=== PATIENT | female | born 1955 ===

== ENCOUNTER 2017-05-21 09:46 | Inpatient (IN) ==
[2017-05-21] MEDS ORDERED: ONDANSETRON 4 MG/2 ML VIAL IV PRN ×2 (10:10→13:18)
[2017-05-21] MEDS ORDERED: NITROGLYCERIN 2% OINT 1 INCH/GM PACK TOP STA (10:10)
[2017-05-21] MEDS ORDERED: ASPIRIN 325 MG TABLET PO STA (10:10)
[2017-05-21] MEDS ORDERED: MORPHINE 2 MG/1 ML SYRINGE IV PRN (10:10)
[2017-05-21 10:24] LABS: INR 0.9; Partial Thromboplastin Time 26.8 SECS (0-40)
[2017-05-21 10:25] LABS: Basophils % 0.5 % (0.0-0.8); Eosinophils % 0.5 % (0.00-10.9); Hematocrit 39.5 VOL% (35.7-47.0); Hemoglobin 14.3 GM/DL (12.0-16.0); Immature Granulocytes % 0.5 %; Immature Granulocytes Absolute 0.04 #; Lymphocytes # 1.3 10*3/uL (1.4-4.0); Lymphocytes % 14.3 % (21.3-54.2); Mean Corpuscular HGB Conc 36.2 GM/DL (32-36); Mean Corpuscular Hemoglobin 31 PG (27-34); Mean Corpuscular Volume 86.2 FL (87-102); Mean Platelet Volume 11.9 FL (9.6-12.0); Monocytes # 0.4 10*3/uL (0.11-0.8); Monocytes % 4.7 % (1.7-12.7); Neutrophils % 79.5 % (38.7-73.9); Platelet Count 198 T/CUMM (130-400); Red Blood Count 4.58 MC/CUMM (3.8-5.5); Red Cell Distribution Width 12.8 % (9.3-17.3); White Blood Count 8.7 T/CUMM (4-12)
[2017-05-21 10:29] LABS: Albumin 3.3 G/DL (3.4-5.0); Bilirubin,Total 0.6 MG/DL (0.2-1.0); Calcium 9.5 MG/DL (8.5-10.1); Osmolality,Calculated 287.8 MOS/KG (273-304); Potassium 4.1 MMOL/L (3.5-5.1); Total Protein 7.5 G/DL (6.4-8.3)
[2017-05-21] MEDS ORDERED: NITROGLYCERIN 2% OINT 1 INCH/GM PACK TOP ONE (10:35)
[2017-05-21 11:52] LABS: Apearance,Urine CLEAR (Clear); Bilirubin,Urine Negative (Negative); Blood, Urine Small mg/dL (Negative); Glucose,Urine (UA) >=500 mg/dL (Negative); Ketones,Urine 20 mg/dL (Negative); Mucus,Urine Occasional /LPF (Occasional); Nitrite,Urine Negative (Negative); Protein,Urine Negative; RBC,Urine 4 /HPF (0-4); Squamous Epithelial Cell,Urine Occasional /HPF (0-10); Urine Color Straw (Yellow); Urine Specific Gravity 1.024 (1.001-1.035); Urine Urobilinogen < 2.0 EU/DL (0.2-1.0); WBC,Urine 1 /HPF (0-6)
[2017-05-21] MEDS ORDERED: MAGNESIUM SULF RIDER 2 GM in PREMIX 1 EACH IV PRN ×3 (12:59→14:18)
[2017-05-21] MEDS ORDERED: POTASSIUM CHLORIDE RIDER 10 MEQ in PREMIX 1 EACH IV PRN (12:59)
[2017-05-21] MEDS ORDERED: DIAZEPAM 5 MG TABLET PO ONE (12:59)
[2017-05-21] MEDS ORDERED: diphenhydrAMINE CAP 25 MG CAPSULE PO ONE (12:59)
[2017-05-21] MEDS ORDERED: INSULIN REGULAR 100 UNIT/ML SUBCUT ONE (13:18)
[2017-05-21] MEDS ORDERED: MAGNESIUM SULF RIDER 4 GM in PREMIX 1 EACH IV PRN ×2 (13:18→14:18)
[2017-05-21] MEDS ORDERED: POTASSIUM CHLORIDE 20 MEQ TABLET PO PRN (13:18)
[2017-05-21] MEDS ORDERED: DIAZEPAM 5 MG TABLET ONE (13:27)
[2017-05-21] MEDS ORDERED: diphenhydrAMINE CAP 25 MG CAPSULE ONE (13:27)
[2017-05-21] MEDS ORDERED: CARVEDILOL 3.125 MG TABLET ONE (13:30)
[2017-05-21] MEDS: CARVEDILOL 3.125 MG TABLET PO SCH ×2 (13:33→21:11)
[2017-05-21] MEDS ORDERED: INSULIN REGULAR 100 UNIT/ML ONE (13:50)
[2017-05-21] MEDS ORDERED: SODIUM CHLORIDE 0.9% 1,000 ML IV SCH (14:18)
[2017-05-21] MEDS ORDERED: ENOXAPARIN 40 MG/0.4 ML SYRINGE SUBCUT SCH (14:18)
[2017-05-21] MEDS: SODIUM CHLORIDE 0.45% 1,000 ML IV SCH (14:25)
[2017-05-21] MEDS ORDERED: MIDAZOLAM 2 MG/2 ML VIAL ONE (15:22)
[2017-05-21] MEDS ORDERED: fentaNYL 100 MCG/2 ML VIAL ONE (15:22)
[2017-05-21] MEDS ORDERED: LIDOCAINE 1% 20 ML VIAL ONE (15:22)
[2017-05-21 15:37] LABS: CKMB % 6.2 %
[2017-05-21 15:41] LABS: Troponin I Only 13.2 NG/ML (0.00-0.045)
[2017-05-21] MEDS: NITROGLYCERIN 2% OINT 1 INCH/GM PACK TOP SCH ×2 (17:02→22:00)
[2017-05-21] MEDS ORDERED: DEXTROSE 50% 25 GM/50 ML VIAL IV PRN (17:04)
[2017-05-21] MEDS ORDERED: GLUCAGON 1 MG VIAL IM PRN (17:04)
[2017-05-21 18:24] LABS: CKMB % 5.9 %
[2017-05-21 18:31] LABS: Troponin I Only 14.3 NG/ML (0.00-0.045)
[2017-05-21 20:02] LABS: CKMB % 5.5 %
[2017-05-21] MEDS ORDERED: ZALEPLON 5 MG CAPSULE PO PRN (21:00)
[2017-05-21] MEDS: ATORVASTATIN 40 MG TABLET PO SCH (21:11)
[2017-05-21] MEDS: ACETAMINOPHEN 325 MG TABLET PO PRN (21:13)
[2017-05-22] MEDS: SODIUM CHLORIDE 0.45% 1,000 ML IV SCH ×3 (04:18→19:24)
[2017-05-22 04:50] LABS: Basophils % 0.5 % (0.0-0.8); Eosinophils # 0.1 10*3/uL (0.0-0.87); Eosinophils % 1.5 % (0.00-10.9); Hematocrit 35.5 VOL% (35.7-47.0); Hemoglobin 12.7 GM/DL (12.0-16.0); Immature Granulocytes % 0.3 %; Immature Granulocytes Absolute 0.03 #; Lymphocytes # 3.3 10*3/uL (1.4-4.0); Lymphocytes % 37.1 % (21.3-54.2); Mean Corpuscular HGB Conc 35.8 GM/DL (32-36); Mean Corpuscular Hemoglobin 31 PG (27-34); Mean Corpuscular Volume 87.2 FL (87-102); Mean Platelet Volume 12.4 FL (9.6-12.0); Monocytes # 0.7 10*3/uL (0.11-0.8); Monocytes % 7.7 % (1.7-12.7); Neutrophils # 4.6 10*3/uL (1.4-7.4); Neutrophils % 52.9 % (38.7-73.9); Platelet Count 176 T/CUMM (130-400); Red Blood Count 4.07 MC/CUMM (3.8-5.5); Red Cell Distribution Width 12.7 % (9.3-17.3); White Blood Count 8.8 T/CUMM (4-12)
[2017-05-22] MEDS: NITROGLYCERIN 2% OINT 1 INCH/GM PACK TOP SCH ×4 (05:19→22:36)
[2017-05-22 05:31] LABS: Calcium 8.5 MG/DL (8.5-10.1); Magnesium 1.8 MG/DL (1.8-2.4)
[2017-05-22 06:21] LABS: Risk Ratio 5.6; VLDL CHOLESTEROL 91.4 MG/DL
[2017-05-22] MEDS: ACETAMINOPHEN 325 MG TABLET PO PRN (09:47)
[2017-05-22] MEDS: PANTOPRAZOLE 40 MG TABLET PO SCH (09:48)
[2017-05-22] MEDS: CARVEDILOL 3.125 MG TABLET PO SCH ×2 (09:48→20:53)
[2017-05-22] MEDS: ENOXAPARIN 40 MG/0.4 ML SYRINGE SUBCUT SCH (09:48)
[2017-05-22] MEDS: ASPIRIN EC 81 MG TABLET PO SCH (09:48)
[2017-05-22] MEDS ORDERED: ALUMINUM/MAGNES/SIMETH MAX STR 30 ML UDCUP PO PRN (16:18)
[2017-05-22] MEDS: INSULIN REGULAR 100 UNIT/ML SUBCUT SCH ×2 (16:25→20:54)
[2017-05-22] MEDS ORDERED: MAGNESIUM HYDROXIDE SUSP 30 ML UDCUP PO ONE (20:42)
[2017-05-22] MEDS: ATORVASTATIN 40 MG TABLET PO SCH (20:53)
[2017-05-22] MEDS: DOCUSATE SODIUM 100 MG CAPSULE PO SCH (20:53)
[2017-05-23] MEDS: NITROGLYCERIN 2% OINT 1 INCH/GM PACK TOP SCH ×3 (04:41→15:45)
[2017-05-23] MEDS: SODIUM CHLORIDE 0.45% 1,000 ML IV SCH ×2 (05:10→15:36)
[2017-05-23 08:14] LABS: Basophils # 0.1 10*3/uL (0.0-0.2); Basophils % 0.7 % (0.0-0.8); Eosinophils # 0.2 10*3/uL (0.0-0.87); Eosinophils % 2.7 % (0.00-10.9); Hematocrit 37.4 VOL% (35.7-47.0); Hemoglobin 13.7 GM/DL (12.0-16.0); Immature Granulocytes % 0.3 %; Immature Granulocytes Absolute 0.02 #; Lymphocytes # 1.9 10*3/uL (1.4-4.0); Lymphocytes % 27.1 % (21.3-54.2); Mean Corpuscular HGB Conc 36.6 GM/DL (32-36); Mean Corpuscular Hemoglobin 32 PG (27-34); Mean Corpuscular Volume 87.2 FL (87-102); Mean Platelet Volume 10.8 FL (9.6-12.0); Monocytes # 0.7 10*3/uL (0.11-0.8); Monocytes % 9.3 % (1.7-12.7); Neutrophils # 4.2 10*3/uL (1.4-7.4); Neutrophils % 59.9 % (38.7-73.9); Platelet Count 193 T/CUMM (130-400); Red Blood Count 4.29 MC/CUMM (3.8-5.5); Red Cell Distribution Width 12.6 % (9.3-17.3)
[2017-05-23 08:45] LABS: Calcium 8.3 MG/DL (8.5-10.1); Magnesium 2.2 MG/DL (1.8-2.4); Osmolality,Calculated 284.5 MOS/KG (273-304); Potassium 4.2 MMOL/L (3.5-5.1)
[2017-05-23] MEDS: INSULIN REGULAR 100 UNIT/ML SUBCUT SCH ×4 (09:32→21:09)
[2017-05-23] MEDS: ENOXAPARIN 40 MG/0.4 ML SYRINGE SUBCUT SCH (09:32)
[2017-05-23] MEDS: PANTOPRAZOLE 40 MG TABLET PO SCH (09:33)
[2017-05-23] MEDS: CHLORHEXIDINE 0.12% ORAL RINSE 60 ML BOTTLE SWISH/SPIT SCH ×2 (09:34→21:10)
[2017-05-23] MEDS: CARVEDILOL 3.125 MG TABLET PO SCH ×2 (09:34→21:09)
[2017-05-23] MEDS: DOCUSATE SODIUM 100 MG CAPSULE PO SCH ×2 (09:34→21:09)
[2017-05-23] MEDS: ASPIRIN EC 81 MG TABLET PO SCH (09:34)
[2017-05-23] MEDS: SODIUM CHLORIDE 0.9% 1,000 ML IV SCH (09:35)
[2017-05-23] MEDS: CHLORHEXIDINE 4% SOLN 118 ML BOTTLE TOP SCH ×3 (09:35→21:10)
[2017-05-23] MEDS: ATORVASTATIN 40 MG TABLET PO SCH (21:09)
[2017-05-24 04:53] LABS: Basophils % 0.5 % (0.0-0.8); Eosinophils # 0.4 10*3/uL (0.0-0.87); Eosinophils % 4.1 % (0.00-10.9); Hematocrit 38.1 VOL% (35.7-47.0); Hemoglobin 13.7 GM/DL (12.0-16.0); Immature Granulocytes % 0.2 %; Immature Granulocytes Absolute 0.02 #; Lymphocytes # 3.4 10*3/uL (1.4-4.0); Lymphocytes % 40.2 % (21.3-54.2); Mean Corpuscular Hemoglobin 31 PG (27-34); Mean Corpuscular Volume 87.4 FL (87-102); Mean Platelet Volume 11.5 FL (9.6-12.0); Monocytes # 0.7 10*3/uL (0.11-0.8); Monocytes % 8.5 % (1.7-12.7); Neutrophils # 3.9 10*3/uL (1.4-7.4); Neutrophils % 46.5 % (38.7-73.9); Platelet Count 191 T/CUMM (130-400); Red Blood Count 4.36 MC/CUMM (3.8-5.5); Red Cell Distribution Width 12.6 % (9.3-17.3); White Blood Count 8.5 T/CUMM (4-12)
[2017-05-24 05:27] LABS: Calcium 8.9 MG/DL (8.5-10.1); Magnesium 2.3 MG/DL (1.8-2.4); Osmolality,Calculated 284.4 MOS/KG (273-304); Potassium 4.1 MMOL/L (3.5-5.1)
[2017-05-24] MEDS: CARVEDILOL 3.125 MG TABLET PO SCH ×2 (10:03→21:00)
[2017-05-24] MEDS: ENOXAPARIN 40 MG/0.4 ML SYRINGE SUBCUT SCH (10:03)
[2017-05-24] MEDS: ASPIRIN EC 81 MG TABLET PO SCH (10:03)
[2017-05-24] MEDS: DOCUSATE SODIUM 100 MG CAPSULE PO SCH ×2 (10:03→21:00)
[2017-05-24] MEDS: PANTOPRAZOLE 40 MG TABLET PO SCH (10:03)
[2017-05-24] MEDS: INSULIN REGULAR 100 UNIT/ML SUBCUT SCH ×4 (10:04→21:00)
[2017-05-24] MEDS: SODIUM CHLORIDE 0.9% 1,000 ML IV SCH (10:04)
[2017-05-24] MEDS: CHLORHEXIDINE 0.12% ORAL RINSE 60 ML BOTTLE SWISH/SPIT SCH ×2 (10:52→21:00)
[2017-05-24] MEDS ORDERED: NITROGLYCERIN 2% OINT 1 INCH/GM PACK TOP SCH (12:00)
[2017-05-24] MEDS: CHLORHEXIDINE 4% SOLN 118 ML BOTTLE TOP SCH ×2 (15:00→21:00)
[2017-05-24] MEDS: INSULIN GLARGINE 100 UNIT/ML SUBCUT SCH (16:42)
[2017-05-24] MEDS: ATORVASTATIN 40 MG TABLET PO SCH (21:00)
[2017-05-25 01:35] LABS: Basophils # 0.1 10*3/uL (0.0-0.2); Basophils % 0.6 % (0.0-0.8); Eosinophils # 0.2 10*3/uL (0.0-0.87); Eosinophils % 2.7 % (0.00-10.9); Hematocrit 39.6 VOL% (35.7-47.0); Hemoglobin 14.1 GM/DL (12.0-16.0); Immature Granulocytes % 0.3 %; Immature Granulocytes Absolute 0.03 #; Lymphocytes # 2.8 10*3/uL (1.4-4.0); Lymphocytes % 30.6 % (21.3-54.2); Mean Corpuscular HGB Conc 35.6 GM/DL (32-36); Mean Corpuscular Hemoglobin 31 PG (27-34); Mean Corpuscular Volume 86.8 FL (87-102); Mean Platelet Volume 11.9 FL (9.6-12.0); Monocytes # 0.7 10*3/uL (0.11-0.8); Monocytes % 7.6 % (1.7-12.7); Neutrophils # 5.2 10*3/uL (1.4-7.4); Neutrophils % 58.2 % (38.7-73.9); Platelet Count 213 T/CUMM (130-400); Red Blood Count 4.56 MC/CUMM (3.8-5.5); Red Cell Distribution Width 12.5 % (9.3-17.3)
[2017-05-25] MEDS ORDERED: TISSUE ADHESIVE 1 EACH APPLICATOR TOP ONE (04:41)
[2017-05-25] MEDS ORDERED: PAPAVERINE 60 MG/2 ML VIAL ONE (04:41)
[2017-05-25] MEDS ORDERED: VANCOMYCIN 1,000 MG VIAL ONE (04:41)
[2017-05-25] MEDS ORDERED: FAMOTIDINE 20 MG TABLET ONE (04:58)
[2017-05-25] MEDS ORDERED: DIAZEPAM 5 MG TABLET ONE (04:58)
[2017-05-25] MEDS ORDERED: DIAZEPAM 5 MG TABLET PO ONE (06:00)
[2017-05-25] MEDS ORDERED: FAMOTIDINE 20 MG TABLET PO ONE (06:00)
[2017-05-25] MEDS ORDERED: CEFUROXIME INJ 1,500 MG in SYRINGE 1 EACH IV ONE (06:00)
[2017-05-25] MEDS ORDERED: TRANEXAMIC ACID 1,000 MG/10 ML VIAL IV ONE ×2 (06:10→06:24)
[2017-05-25] MEDS ORDERED: INSULIN REGULAR 100 UNIT/ML ONE ×2 (07:46→10:38)
[2017-05-25] MEDS ORDERED: PHENYLEPHRINE DRIP 20 MG/250 ML PREMIX IV ONE ×3 (08:46→11:35)
[2017-05-25] MEDS ORDERED: NITROGLYCERIN DRIP 50 MG/250 ML BOTTLE IV ONE ×2 (08:46→11:35)
[2017-05-25] MEDS ORDERED: HEPARIN/NACL 0.9% 2 UNITS/ML 500 ML IV ONE ×2 (08:46→11:35)
[2017-05-25] MEDS ORDERED: ALBUMIN 5% 12.5 GM/250 ML VIAL IV ONE (08:56)
[2017-05-25] MEDS ORDERED: SODIUM BICARBONATE 50 MEQ/50 ML SYRINGE IV ONE ×2 (08:57→10:20)
[2017-05-25] MEDS ORDERED: CALCIUM CHLORIDE 1,000 MG/10 ML SYRINGE IV ONE ×2 (08:57→09:00)
[2017-05-25] MEDS ORDERED: LIDOCAINE 2% 5 ML VIAL ONE (09:00)
[2017-05-25] MEDS ORDERED: ETOMIDATE 20 MG/10 ML VIAL IV ONE ×2 (09:00→12:13)
[2017-05-25] MEDS ORDERED: VECURONIUM 10 MG VIAL IV ONE ×2 (09:00→12:12)
[2017-05-25] MEDS ORDERED: SEVOFLURANE 1 UNIT/15 MINUTE INH ONE ×2 (09:00→12:12)
[2017-05-25 09:53] LABS: Calcium 9.3 MG/DL (8.5-10.1); Magnesium 2.2 MG/DL (1.8-2.4); Osmolality,Calculated 285.7 MOS/KG (273-304); Potassium 4.2 MMOL/L (3.5-5.1)
[2017-05-25 10:17] LABS: ABG Base Excess 0.2 MMOL/L (-2.5-2.5); ABG HCO3 24.6 MMOL/L (20-26); ABG Oxygen Saturation 96.9 % (95-100); ABG PCO2 37.2 MM HG (35-48); ABG PH 7.423 (7.35-7.45); ABG PO2 87.5 MM HG (80-95); ABG TCO2 20.8 MMOL/L (23-27)
[2017-05-25 10:17] LABS: INR 0.9; PT Patient Result 9.8 SECS; Partial Thromboplastin Time 25.9 SECS (0-40)
[2017-05-25] MEDS ORDERED: MANNITOL 12.5 GM/50 ML VIAL IV ONE (10:20)
[2017-05-25] MEDS ORDERED: FUROSEMIDE 20 MG/2 ML VIAL ONE (10:20)
[2017-05-25] MEDS ORDERED: methylPREDNISolone SOD SUC 1,000 MG/8 ML VIAL ONE (10:20)
[2017-05-25] MEDS ORDERED: HEPARIN 10,000 UNIT/10 ML VIAL ONE (10:20)
[2017-05-25] MEDS ORDERED: MAGNESIUM SULFATE 1 GM/2 ML VIAL ONE (10:20)
[2017-05-25] MEDS ORDERED: ALBUMIN 25% 25 GM/100 ML VIAL IV ONE (10:20)
[2017-05-25] MEDS ORDERED: DEXTROSE 5% KCL 20 MEQ 20 MEQ/1,000 ML BAG IV ONE (10:20)
[2017-05-25] MEDS ORDERED: PROTAMINE SULFATE 250 MG/25 ML VIAL IV ONE (10:20)
[2017-05-25] MEDS ORDERED: THROMBIN TOPICAL (RECOMBINANT) 5,000 UNIT VIAL TOP ONE (10:30)
[2017-05-25 10:33] LABS: ABG Base Excess -1.8 MMOL/L (-2.5-2.5); ABG HCO3 20.3 MMOL/L (20-26); ABG Oxygen Saturation 98.7 % (95-100); ABG PCO2 25.9 MM HG (35-48); ABG PH 7.511 (7.35-7.45); ABG PO2 423.2 MM HG (80-95); Glucose Heart Surgery 349 MG/DL (74-106); Hemoglobin Heart Surgery 10.2 G/DL (12.0-16.0); Ionized Calcium Arterial 1.17 MMOL/L (1.21-1.46); PCO2 Patient Temp Arterial 25.9 MMHG; PH Patient Temp Arterial 7.511; PO2 Patient Temp Arterial 423.2 MM HG; Patient Temperature 37 CELCIUS; Potassium Heart/CVR 3.9 MMOL/L (3.5-5.1); Sodium Heart/CVR 130 MMOL/L (135-145)
[2017-05-25] MEDS ORDERED: PHENYLEPHRINE DRIP 40 MG/250 ML PREMIX IV ONE (10:56)
[2017-05-25] MEDS ORDERED: SODIUM CHLORIDE 0.9% 250 ML IV PRN (11:35)
[2017-05-25] MEDS ORDERED: MAGNESIUM SULF RIDER 4 GM in PREMIX 1 EACH IV PRN (11:35)
[2017-05-25] MEDS ORDERED: MORPHINE 10 MG/1 ML VIAL IV PRN (11:35)
[2017-05-25] MEDS ORDERED: CHLORHEXIDINE 4% SOLN 118 ML BOTTLE TOP PRN (11:35)
[2017-05-25] MEDS ORDERED: DEXTROSE 50% 25 GM/50 ML VIAL IV PRN ×2 (11:35)
[2017-05-25] MEDS ORDERED: ACETAMINOPHEN 650 MG SUPP RECTAL PRN (11:35)
[2017-05-25] MEDS ORDERED: MAGNESIUM SULF RIDER 2 GM in PREMIX 1 EACH IV PRN (11:35)
[2017-05-25] MEDS ORDERED: ONDANSETRON 4 MG/2 ML VIAL IV PRN (11:35)
[2017-05-25] MEDS ORDERED: MORPHINE 2 MG/1 ML SYRINGE IV PRN (11:35)
[2017-05-25] MEDS ORDERED: CALCIUM CHLORIDE 1,000 MG/10 ML SYRINGE IV PRN (11:35)
[2017-05-25 11:36] LABS: VBG Base Excess -3.5 MEQ/L (0-4); VBG HCO3 21.5 MEQ/L (24-28); VBG Oxygen Saturation 98.7 %; VBG PCO2 35.2 MMHG (41-51); VBG PH 7.383
[2017-05-25 11:43] LABS: ABG Base Excess -1.8 MMOL/L (-2.5-2.5); ABG HCO3 22.9 MMOL/L (20-26); ABG Oxygen Saturation 99.8 % (95-100); ABG PCO2 31.7 MM HG (35-48); ABG PH 7.437 (7.35-7.45); ABG TCO2 18.4 MMOL/L (23-27); Glucose Heart Surgery 321 MG/DL (74-106); Hematocrit Heart Surgery 42.4 PERCENT (37-47); Hemoglobin Heart Surgery 13.8 G/DL (12.0-16.0); Ionized Calcium Arterial 1.19 MMOL/L (1.21-1.46); PCO2 Patient Temp Arterial 31.7 MMHG; PH Patient Temp Arterial 7.437; Patient Temperature 37 CELCIUS; Potassium Heart/CVR 4.1 MMOL/L (3.5-5.1); Sodium Heart/CVR 137 MMOL/L (135-145)
[2017-05-25] MEDS ORDERED: MIDAZOLAM 10 MG/2 ML VIAL ONE ×2 (11:44→12:12)
[2017-05-25 11:46] LABS: VBG Base Excess -2.6 MEQ/L (0-4); VBG Oxygen Saturation 75.1 %; VBG PCO2 37.4 MMHG (41-51); VBG PH 7.381; VBG PO2 42.7 MMHG (17-40)
[2017-05-25] MEDS: SODIUM CHLORIDE 0.45% 1,000 ML IV SCH ×2 (11:50)
[2017-05-25 11:53] LABS: Hemoglobin Heart Surgery 8.4 G/DL (12.0-16.0); PCO2 Patient Temp Venous 32.4 MM HG; PH Patient Temp Venous 7.424; PO2 Patient Temp Venous 34.6 MM HG; Potassium Heart/CVR 4.5 MMOL/L (3.5-5.1)
[2017-05-25 11:54] LABS: Hematocrit Heart Surgery 28.1 PERCENT (37-47); PCO2 Patient Temp Venous 28.9 MM HG; PH Patient Temp Venous 7.452; PO2 Patient Temp Venous 30.3 MM HG; Potassium Heart/CVR 3.9 MMOL/L (3.5-5.1); VBG Base Excess -2.9 MEQ/L (0-4); VBG HCO3 21.7 MEQ/L (24-28); VBG Oxygen Saturation 77.3 %; VBG PCO2 36.8 MMHG (41-51); VBG PH 7.38; VBG PO2 42.9 MMHG (17-40)
[2017-05-25] MEDS: MIDAZOLAM 2 MG/2 ML VIAL IV PRN ×3 (11:55→13:38)
[2017-05-25 11:58] LABS: Basophils % 0.1 % (0.0-0.8); Eosinophils % 0.4 % (0.00-10.9); Hematocrit 30.5 VOL% (35.7-47.0); Hemoglobin 10.9 GM/DL (12.0-16.0); Immature Granulocytes % 1.3 %; Immature Granulocytes Absolute 0.12 #; Lymphocytes # 1.1 10*3/uL (1.4-4.0); Lymphocytes % 11.2 % (21.3-54.2); Mean Corpuscular HGB Conc 35.7 GM/DL (32-36); Mean Corpuscular Hemoglobin 31 PG (27-34); Mean Corpuscular Volume 87.9 FL (87-102); Mean Platelet Volume 11.5 FL (9.6-12.0); Monocytes # 0.3 10*3/uL (0.11-0.8); Monocytes % 3.1 % (1.7-12.7); Neutrophils # 7.9 10*3/uL (1.4-7.4); Neutrophils % 83.9 % (38.7-73.9); Platelet Count 136 T/CUMM (130-400); Red Blood Count 3.47 MC/CUMM (3.8-5.5); Red Cell Distribution Width 12.6 % (9.3-17.3); White Blood Count 9.4 T/CUMM (4-12)
[2017-05-25 12:05] LABS: Hematocrit Heart Surgery 28.4 PERCENT (37-47); Hemoglobin Heart Surgery 9.2 G/DL (12.0-16.0); PCO2 Patient Temp Venous 35.8 MM HG; PH Patient Temp Venous 7.409; PO2 Patient Temp Venous 36.4 MM HG; Potassium Heart/CVR 4.5 MMOL/L (3.5-5.1); VBG Base Excess -1.6 MEQ/L (0-4); VBG HCO3 22.6 MEQ/L (24-28); VBG Oxygen Saturation 68.6 %; VBG PCO2 35.8 MMHG (41-51); VBG PH 7.409; VBG PO2 36.4 MMHG (17-40)
[2017-05-25 12:05] LABS: INR 1.2; PT Patient Result 12.1 SECS; Partial Thromboplastin Time 28.6 SECS (0-40)
[2017-05-25] MEDS ORDERED: CALCIUM CHLORIDE 1,000 MG/10 ML VIAL IV ONE (12:12)
[2017-05-25] MEDS ORDERED: SODIUM CHLORIDE 0.9% 100 ML IV ONE (12:13)
[2017-05-25] MEDS ORDERED: SODIUM CHLORIDE 0.9% 1,000 ML IV ONE (12:13)
[2017-05-25] MEDS ORDERED: SODIUM CHLORIDE 0.9% 250 ML IV ONE (12:13)
[2017-05-25] MEDS ORDERED: LACTATED RINGERS 1,000 ML IV ONE (12:13)
[2017-05-25 12:15] LABS: ABG Base Excess -2.7 MMOL/L (-2.5-2.5); ABG HCO3 21.5 MMOL/L (20-26); ABG Oxygen Saturation 96.5 % (95-100); ABG PCO2 35.5 MM HG (35-48); ABG PO2 99.9 MM HG (80-95); ABG TCO2 22.6 MMOL/L (23-27); Glucose Heart Surgery 264 MG/DL (74-106); Hemoglobin Heart Surgery 12.4 G/DL (12.0-16.0); Potassium Heart/CVR 3.4 MMOL/L (3.5-5.1)
[2017-05-25] MEDS: INSULIN REGULAR DRIP 100 ML IV SCH (12:21)
[2017-05-25 12:30] LABS: Calcium 7.7 MG/DL (8.5-10.1); Magnesium 2.4 MG/DL (1.8-2.4); Osmolality,Calculated 284.7 MOS/KG (273-304); Potassium 3.5 MMOL/L (3.5-5.1)
[2017-05-25 12:32] LABS: Lactic Acid 3.7 MMOL/L (0.4-2.0)
[2017-05-25] MEDS: POTASSIUM CHLORIDE RIDER 20 MEQ in PREMIX 1 EACH IV PRN ×2 (12:36→13:11)
[2017-05-25] MEDS: INSULIN REGULAR 100 UNIT/ML IV PRN ×2 (13:11→20:23)
[2017-05-25] MEDS: ALBUMIN 5% 12.5 GM in PREMIX 1 EACH IV PRN ×2 (15:29→15:47)
[2017-05-25] MEDS ORDERED: NITROGLYCERIN DRIP 50 MG/250 ML BOTTLE IV SCH (17:00)
[2017-05-25] MEDS: CEFUROXIME INJ 1,500 MG in SYRINGE 1 EACH IV SCH (18:17)
[2017-05-25 19:12] LABS: ABG Base Excess -0.3 MMOL/L (-2.5-2.5); ABG HCO3 24.1 MMOL/L (20-26); ABG Oxygen Saturation 96.8 % (95-100); ABG PCO2 38.3 MM HG (35-48); ABG PH 7.416 (7.35-7.45); ABG PO2 98.2 MM HG (80-95); ABG TCO2 25.2 MMOL/L (23-27); Glucose Heart Surgery 149 MG/DL (74-106); Hemoglobin Heart Surgery 11.3 G/DL (12.0-16.0)
[2017-05-25] MEDS: CHLORHEXIDINE 0.12% ORAL RINSE 60 ML BOTTLE SWISH/SPIT SCH (20:25)
[2017-05-26] MEDS: SODIUM CHLORIDE 0.45% 1,000 ML IV SCH ×2 (00:35→10:14)
[2017-05-26] MEDS: INSULIN REGULAR DRIP 100 ML IV SCH (00:36)
[2017-05-26 03:34] LABS: Basophils % 0.1 % (0.0-0.8); Hematocrit 27.9 VOL% (35.7-47.0); Hemoglobin 9.9 GM/DL (12.0-16.0); Immature Granulocytes % 0.4 %; Immature Granulocytes Absolute 0.07 #; Lymphocytes # 1.5 10*3/uL (1.4-4.0); Lymphocytes % 9.1 % (21.3-54.2); Mean Corpuscular HGB Conc 35.5 GM/DL (32-36); Mean Corpuscular Hemoglobin 31 PG (27-34); Mean Corpuscular Volume 88.6 FL (87-102); Mean Platelet Volume 10.7 FL (9.6-12.0); Monocytes % 6.4 % (1.7-12.7); Neutrophils # 13.6 10*3/uL (1.4-7.4); Platelet Count 142 T/CUMM (130-400); Red Blood Count 3.15 MC/CUMM (3.8-5.5); White Blood Count 16.2 T/CUMM (4-12)
[2017-05-26 04:20] LABS: Calcium 7.8 MG/DL (8.5-10.1); Magnesium 1.9 MG/DL (1.8-2.4); Osmolality,Calculated 277.5 MOS/KG (273-304); Potassium 3.9 MMOL/L (3.5-5.1)
[2017-05-26] MEDS: POTASSIUM CHLORIDE RIDER 20 MEQ in PREMIX 1 EACH IV PRN (04:31)
[2017-05-26] MEDS: POTASSIUM CHLORIDE RIDER 10 MEQ in PREMIX 1 EACH IV PRN (05:12)
[2017-05-26] MEDS: CEFUROXIME INJ 1,500 MG in SYRINGE 1 EACH IV SCH (06:21)
[2017-05-26] MEDS ORDERED: FUROSEMIDE 40 MG/4 ML VIAL IV ONE (06:59)
[2017-05-26] MEDS: INSULIN REGULAR 100 UNIT/ML SUBCUT SCH ×5 (08:05→22:53)
[2017-05-26] MEDS: CLOPIDOGREL 75 MG TABLET PO SCH (08:32)
[2017-05-26] MEDS: FUROSEMIDE 40 MG TABLET PO SCH (08:32)
[2017-05-26] MEDS: METOPROLOL TARTRATE 25 MG TABLET PO SCH ×2 (08:33→22:53)
[2017-05-26] MEDS: CHLORHEXIDINE 0.12% ORAL RINSE 60 ML BOTTLE SWISH/SPIT SCH ×3 (08:34→22:54)
[2017-05-26] MEDS: SODIUM CHLORIDE 0.9% 1,000 ML IV SCH (10:12)
[2017-05-26] MEDS: ASPIRIN EC 81 MG TABLET PO SCH (10:12)
[2017-05-26] MEDS: DOCUSATE SODIUM 100 MG CAPSULE PO SCH (10:13)
[2017-05-26] MEDS: CARVEDILOL 3.125 MG TABLET PO SCH (10:13)
[2017-05-26] MEDS: CHLORHEXIDINE 4% SOLN 118 ML BOTTLE TOP SCH (10:13)
[2017-05-26] MEDS: INSULIN GLARGINE 100 UNIT/ML SUBCUT SCH (10:13)
[2017-05-26] MEDS: PANTOPRAZOLE 40 MG TABLET PO SCH (10:13)
[2017-05-26] MEDS: ASPIRIN EC 325 MG TABLET PO SCH (12:54)
[2017-05-26] MEDS: ATORVASTATIN 40 MG TABLET PO SCH ×2 (12:54→22:53)
[2017-05-26] MEDS ORDERED: CEFUROXIME INJ 1,500 MG in SYRINGE 1 EACH IV SCH (23:30)
[2017-05-27] MEDS: CEFUROXIME INJ 1,500 MG in SYRINGE 1 EACH IV SCH (00:40)
[2017-05-27 05:57] LABS: Basophils % 0.3 % (0.0-0.8); Eosinophils % 0.1 % (0.00-10.9); Hemoglobin 11.6 GM/DL (12.0-16.0); Immature Granulocytes % 0.6 %; Immature Granulocytes Absolute 0.09 #; Lymphocytes # 3.1 10*3/uL (1.4-4.0); Lymphocytes % 19.4 % (21.3-54.2); Mean Corpuscular HGB Conc 35.2 GM/DL (32-36); Mean Corpuscular Hemoglobin 31 PG (27-34); Mean Corpuscular Volume 89.2 FL (87-102); Mean Platelet Volume 11.7 FL (9.6-12.0); Monocytes # 1.6 10*3/uL (0.11-0.8); Monocytes % 10.2 % (1.7-12.7); Neutrophils % 69.4 % (38.7-73.9); Platelet Count 135 T/CUMM (130-400); Red Cell Distribution Width 12.9 % (9.3-17.3); White Blood Count 15.8 T/CUMM (4-12)
[2017-05-27] MEDS: INSULIN REGULAR 100 UNIT/ML SUBCUT SCH ×6 (06:19→22:03)
[2017-05-27 06:31] LABS: Calcium 8.6 MG/DL (8.5-10.1); Magnesium 2.1 MG/DL (1.8-2.4); Osmolality,Calculated 283.7 MOS/KG (273-304)
[2017-05-27] MEDS: ALBUTEROL/IPRATROPIUM 3 ML NEB RESP TX SCH ×4 (07:58→20:06)
[2017-05-27] MEDS ORDERED: METOPROLOL TARTRATE 50 MG TABLET PO SCH (09:00)
[2017-05-27] MEDS: CLOPIDOGREL 75 MG TABLET PO SCH (09:56)
[2017-05-27] MEDS: CHLORHEXIDINE 0.12% ORAL RINSE 60 ML BOTTLE SWISH/SPIT SCH ×2 (09:56→22:05)
[2017-05-27] MEDS: ASPIRIN EC 325 MG TABLET PO SCH (09:56)
[2017-05-27] MEDS: FUROSEMIDE 40 MG TABLET PO SCH (09:56)
[2017-05-27] MEDS ORDERED: METOPROLOL TARTRATE 5 MG/5 ML VIAL IV ONE (20:44)
[2017-05-27] MEDS: ATORVASTATIN 40 MG TABLET PO SCH (22:04)
[2017-05-27] MEDS: METOPROLOL TARTRATE 100 MG TABLET PO SCH (22:04)
[2017-05-28] MEDS: ALBUTEROL/IPRATROPIUM 3 ML NEB RESP TX SCH ×7 (00:18→23:44)
[2017-05-28] MEDS: INSULIN REGULAR 100 UNIT/ML SUBCUT SCH ×6 (01:16→21:37)
[2017-05-28 04:39] LABS: Basophils # 0.1 10*3/uL (0.0-0.2); Basophils % 0.3 % (0.0-0.8); Eosinophils # 0.1 10*3/uL (0.0-0.87); Eosinophils % 0.7 % (0.00-10.9); Hematocrit 32.8 VOL% (35.7-47.0); Hemoglobin 11.6 GM/DL (12.0-16.0); Immature Granulocytes % 0.7 %; Lymphocytes % 20.3 % (21.3-54.2); Mean Corpuscular HGB Conc 35.4 GM/DL (32-36); Mean Corpuscular Hemoglobin 31 PG (27-34); Mean Corpuscular Volume 88.4 FL (87-102); Mean Platelet Volume 11.4 FL (9.6-12.0); Monocytes # 1.4 10*3/uL (0.11-0.8); Monocytes % 9.3 % (1.7-12.7); NRBC # 0.02 10*3/uL; Neutrophils # 10.2 10*3/uL (1.4-7.4); Neutrophils % 68.7 % (38.7-73.9); Platelet Count 161 T/CUMM (130-400); Red Blood Count 3.71 MC/CUMM (3.8-5.5); Red Cell Distribution Width 12.9 % (9.3-17.3); White Blood Count 14.8 T/CUMM (4-12)
[2017-05-28 05:17] LABS: Calcium 8.6 MG/DL (8.5-10.1); Magnesium 2.3 MG/DL (1.8-2.4); Osmolality,Calculated 286.5 MOS/KG (273-304); Potassium 3.7 MMOL/L (3.5-5.1)
[2017-05-28] MEDS ORDERED: INSULIN REGULAR 100 UNIT/ML SUBCUT SCH (07:30)
[2017-05-28] MEDS: FUROSEMIDE 40 MG TABLET PO SCH (08:58)
[2017-05-28] MEDS: CLOPIDOGREL 75 MG TABLET PO SCH (08:58)
[2017-05-28] MEDS: ASPIRIN EC 325 MG TABLET PO SCH (08:58)
[2017-05-28] MEDS: METOPROLOL TARTRATE 100 MG TABLET PO SCH ×2 (08:59→21:36)
[2017-05-28] MEDS: CHLORHEXIDINE 0.12% ORAL RINSE 60 ML BOTTLE SWISH/SPIT SCH ×2 (08:59→21:37)
[2017-05-28] MEDS ORDERED: SODIUM PHOSPHATE ENEMA 133 ML BOTTLE RECTAL ONE (10:06)
[2017-05-28] MEDS ORDERED: MAGNESIUM HYDROXIDE SUSP 30 ML UDCUP PO PRN (10:06)
[2017-05-28] MEDS ORDERED: FUROSEMIDE 40 MG/4 ML VIAL IV ONE (10:06)
[2017-05-28] MEDS: ATORVASTATIN 40 MG TABLET PO SCH (21:36)
[2017-05-29] MEDS: ALBUTEROL/IPRATROPIUM 3 ML NEB RESP TX SCH ×3 (03:01→11:29)
[2017-05-29 03:45] LABS: Basophils # 0.1 10*3/uL (0.0-0.2); Basophils % 0.5 % (0.0-0.8); Eosinophils # 0.4 10*3/uL (0.0-0.87); Hemoglobin 11.9 GM/DL (12.0-16.0); Immature Granulocytes % 0.8 %; Lymphocytes # 3.5 10*3/uL (1.4-4.0); Lymphocytes % 26.5 % (21.3-54.2); Mean Corpuscular HGB Conc 36.1 GM/DL (32-36); Mean Corpuscular Hemoglobin 32 PG (27-34); Mean Corpuscular Volume 87.8 FL (87-102); Mean Platelet Volume 11.2 FL (9.6-12.0); Monocytes # 1.3 10*3/uL (0.11-0.8); Monocytes % 9.9 % (1.7-12.7); NRBC # 0.02 10*3/uL; Neutrophils # 7.8 10*3/uL (1.4-7.4); Neutrophils % 59.3 % (38.7-73.9); Platelet Count 210 T/CUMM (130-400); Red Blood Count 3.76 MC/CUMM (3.8-5.5); White Blood Count 13.1 T/CUMM (4-12)
[2017-05-29 04:11] LABS: Calcium 8.6 MG/DL (8.5-10.1); Magnesium 2.1 MG/DL (1.8-2.4); Osmolality,Calculated 284.5 MOS/KG (273-304); Potassium 3.3 MMOL/L (3.5-5.1)
[2017-05-29] MEDS: POTASSIUM CHLORIDE RIDER 10 MEQ in PREMIX 1 EACH IV PRN (04:31)
[2017-05-29] MEDS ORDERED: POTASSIUM CHLORIDE 20 MEQ TABLET PO ONE (06:30)
[2017-05-29] MEDS: ASPIRIN EC 325 MG TABLET PO SCH (08:33)
[2017-05-29] MEDS: CLOPIDOGREL 75 MG TABLET PO SCH (08:33)
[2017-05-29] MEDS: METOPROLOL TARTRATE 100 MG TABLET PO SCH (08:33)
[2017-05-29] MEDS: FUROSEMIDE 40 MG TABLET PO SCH (08:33)
[2017-05-29] MEDS: INSULIN REGULAR 100 UNIT/ML SUBCUT SCH ×2 (08:33→11:41)
[2017-05-29] MEDS: CHLORHEXIDINE 0.12% ORAL RINSE 60 ML BOTTLE SWISH/SPIT SCH (08:34)
[2017-05-29 11:37] VITALS: BP 117/58
== END 2017-05-29 13:04 | disposition home health service (06) | DRG 234 ==
LOC: EDUNIT# → EDBD → N.ED 09:46 → N.EDINP 11:34 → OBSVTOIN 11:34 → INTOOBSV 11:34 → N.EDINP 15:05 → N.TELEN 16:50 → N.CVR 05-25 10:53 → N.ICU 05-26 09:00 → N.TELES 05-26 18:19
PROVIDERS: ADMIT Internal Medicine Cardiovascular Disease; ATTEND Internal Medicine Cardiovascular Disease

== ENCOUNTER 2018-10-14 11:35 | Observation (INO) ==
[2018-10-14 12:07] LABS: Basophils # 0.1 10*3/uL (0.0-0.2); Basophils % 0.7 % (0.0-0.8); Eosinophils # 0.1 10*3/uL (0.0-0.87); Eosinophils % 1.4 % (0.00-10.9); Hematocrit 36.3 VOL% (35.7-47.0); Hemoglobin 12.2 GM/DL (12.0-16.0); Immature Granulocytes % 0.4 %; Immature Granulocytes Absolute 0.03 #; Lymphocytes # 2.3 10*3/uL (1.4-4.0); Lymphocytes % 31.1 % (21.3-54.2); Mean Corpuscular HGB Conc 33.6 GM/DL (32-36); Mean Corpuscular Hemoglobin 31 PG (27-34); Mean Corpuscular Volume 91.4 FL (87-102); Mean Platelet Volume 10.8 FL (9.6-12.0); Monocytes # 0.5 10*3/uL (0.11-0.8); Monocytes % 7.2 % (1.7-12.7); Neutrophils # 4.3 10*3/uL (1.4-7.4); Neutrophils % 59.2 % (38.7-73.9); Platelet Count 193 T/CUMM (130-400); Red Blood Count 3.97 MC/CUMM (3.8-5.5); Red Cell Distribution Width 12.6 % (9.3-17.3); White Blood Count 7.3 T/CUMM (4-12)
[2018-10-14] MEDS ORDERED: NITROGLYCERIN 2% OINT 1 INCH/GM PACK TOP STA (12:09)
[2018-10-14] MEDS ORDERED: ENOXAPARIN 80 MG/0.8 ML SYRINGE SUBCUT STA (12:09)
[2018-10-14 12:14] LABS: INR 0.9; PT Patient Result 10.1 SECS; Partial Thromboplastin Time 25.2 SECS (0-40)
[2018-10-14 12:46] LABS: Albumin 3.1 G/DL (3.4-5.0); Bilirubin,Total 0.7 MG/DL (0.2-1.0); Calcium 8.2 MG/DL (8.5-10.1); Potassium 4.2 MMOL/L (3.5-5.1); Total Protein 6.9 G/DL (6.4-8.3)
[2018-10-14] MEDS ORDERED: INFLUENZA VIRUS VACCINE 0.5 ML SYRINGE IM ONE (15:32)
[2018-10-14] MEDS ORDERED: ALUM/MAG/SIMETH/LIDO VISC 1:1 30 ML BOTTLE PO PRN (15:53)
[2018-10-14] MEDS ORDERED: DEXTROSE 50% 25 GM/50 ML SYRINGE IV PRN (15:53)
[2018-10-14] MEDS ORDERED: GLUCAGON 1 MG VIAL IM PRN (15:53)
[2018-10-14] MEDS ORDERED: ONDANSETRON 4 MG/2 ML VIAL IV PRN (15:53)
[2018-10-14] MEDS ORDERED: MORPHINE 4 MG/1 ML VIAL IV PRN (15:53)
[2018-10-14] MEDS: INSULIN LISPRO 100 UNIT/ML SUBCUT SCH ×2 (17:01→20:58)
[2018-10-14] MEDS: ACETAMINOPHEN 325 MG TABLET PO PRN (17:04)
[2018-10-14] MEDS: PANTOPRAZOLE 40 MG TABLET PO SCH (17:06)
[2018-10-14] MEDS: glyBURIDE/METFORMIN 5-500 MG TABLET PO SCH (20:59)
[2018-10-14] MEDS ORDERED: INSULIN GLARGINE 100 UNIT/ML SUBCUT SCH (21:00)
[2018-10-15] MEDS: ACETAMINOPHEN 325 MG TABLET PO PRN (01:05)
[2018-10-15 05:15] LABS: Basophils % 0.6 % (0.0-0.8); Eosinophils # 0.2 10*3/uL (0.0-0.87); Eosinophils % 2.5 % (0.00-10.9); Hemoglobin 12.5 GM/DL (12.0-16.0); Immature Granulocytes % 0.3 %; Immature Granulocytes Absolute 0.02 #; Lymphocytes # 3.2 10*3/uL (1.4-4.0); Lymphocytes % 44.4 % (21.3-54.2); Mean Corpuscular HGB Conc 33.8 GM/DL (32-36); Mean Corpuscular Hemoglobin 31 PG (27-34); Mean Corpuscular Volume 90.7 FL (87-102); Mean Platelet Volume 11.4 FL (9.6-12.0); Monocytes # 0.6 10*3/uL (0.11-0.8); Monocytes % 8.6 % (1.7-12.7); Neutrophils # 3.1 10*3/uL (1.4-7.4); Neutrophils % 43.6 % (38.7-73.9); Platelet Count 190 T/CUMM (130-400); Red Blood Count 4.08 MC/CUMM (3.8-5.5); Red Cell Distribution Width 12.6 % (9.3-17.3); White Blood Count 7.2 T/CUMM (4-12)
[2018-10-15 05:36] LABS: Calcium 8.3 MG/DL (8.5-10.1); Osmolality,Calculated 290.8 MOS/KG (273-304); Potassium 3.5 MMOL/L (3.5-5.1); Thyroid Stimulating Hormone 2.51 uIU/ml (0.358-3.74)
[2018-10-15] MEDS ORDERED: REGADENOSON 0.4 MG/5 ML SYRINGE IV ONE (07:35)
[2018-10-15] MEDS ORDERED: ASPIRIN EC 81 MG TABLET PO SCH (09:00)
[2018-10-15] MEDS: PANTOPRAZOLE 40 MG TABLET PO SCH (10:33)
[2018-10-15] MEDS: glyBURIDE/METFORMIN 5-500 MG TABLET PO SCH (10:33)
[2018-10-15] MEDS: INSULIN LISPRO 100 UNIT/ML SUBCUT SCH ×2 (11:13→12:20)
[2018-10-15 12:13] VITALS: BP 132/74
[2018-10-15] MEDS ORDERED: ENOXAPARIN 80 MG/0.8 ML SYRINGE SUBCUT SCH (13:00)
[2018-10-15] MEDS ORDERED: CLOPIDOGREL 75 MG TABLET PO SCH (15:59)
== END 2018-10-15 13:20 | disposition home or self-care (01) ==
LOC: EDUNIT# → EDBD → N.ED 11:35 → N.EDINP 11:35 → N.TELEN 14:49
PROVIDERS: ADMIT Internal Medicine; ATTEND Internal Medicine

== ENCOUNTER 2018-11-23 16:01 | Observation (INO) ==
[2018-11-23] MEDS ORDERED: GLUCAGON 1 MG VIAL IM PRN (19:35)
[2018-11-23] MEDS ORDERED: DEXTROSE 50% 25 GM/50 ML SYRINGE IV PRN (19:35)
[2018-11-23] MEDS ORDERED: ALUM/MAG/SIMETH/LIDO VISC 1:1 30 ML BOTTLE PO ONE (19:43)
[2018-11-23] MEDS ORDERED: ALUMINUM/MAGNES/SIMETH MAX STR 30 ML UDCUP PO PRN (19:43)
[2018-11-23 20:03] LABS: Basophils # 0.1 10*3/uL (0.0-0.2); Basophils % 0.6 % (0.0-0.8); Eosinophils # 0.1 10*3/uL (0.0-0.87); Eosinophils % 1.3 % (0.00-10.9); Hematocrit 40.2 VOL% (35.7-47.0); Hemoglobin 13.9 GM/DL (12.0-16.0); Immature Granulocytes % 0.3 %; Immature Granulocytes Absolute 0.02 #; Lymphocytes # 2.4 10*3/uL (1.4-4.0); Lymphocytes % 30.9 % (21.3-54.2); Mean Corpuscular HGB Conc 34.6 GM/DL (32-36); Monocytes % 8.7 % (1.7-12.7); Neutrophils % 58.2 % (38.7-73.9); Platelet Count 218 T/CUMM (130-400); Red Blood Count 4.42 MC/CUMM (3.8-5.5); Red Cell Distribution Width 12.9 % (9.3-17.3); White Blood Count 7.8 T/CUMM (4-12)
[2018-11-23 20:30] LABS: Albumin 3.3 G/DL (3.4-5.0); Bilirubin,Total 0.4 MG/DL (0.2-1.0); Calcium 9.4 MG/DL (8.5-10.1); Osmolality,Calculated 289.5 MOS/KG (273-304); Risk Ratio 3.04; Thyroid Stimulating Hormone 2.37 uIU/ml (0.358-3.74); Total Protein 7.1 G/DL (6.4-8.3)
[2018-11-23] MEDS: SIMVASTATIN 40 MG TABLET PO SCH (21:27)
[2018-11-23] MEDS: INSULIN LISPRO 100 UNIT/ML SUBCUT SCH (21:27)
[2018-11-23] MEDS: METOPROLOL TARTRATE 100 MG TABLET PO SCH (21:27)
[2018-11-23] MEDS: ENOXAPARIN 80 MG/0.8 ML SYRINGE SUBCUT SCH (21:28)
[2018-11-24 04:30] LABS: Basophils # 0.1 10*3/uL (0.0-0.2); Basophils % 0.7 % (0.0-0.8); Eosinophils # 0.2 10*3/uL (0.0-0.87); Eosinophils % 2.2 % (0.00-10.9); Hematocrit 39.3 VOL% (35.7-47.0); Hemoglobin 13.3 GM/DL (12.0-16.0); Immature Granulocytes % 0.4 %; Immature Granulocytes Absolute 0.03 #; Lymphocytes # 2.8 10*3/uL (1.4-4.0); Lymphocytes % 36.4 % (21.3-54.2); Mean Corpuscular HGB Conc 33.8 GM/DL (32-36); Mean Corpuscular Volume 91.6 FL (87-102); Mean Platelet Volume 11.4 FL (9.6-12.0); Neutrophils % 51.3 % (38.7-73.9); Platelet Count 203 T/CUMM (130-400); Red Blood Count 4.29 MC/CUMM (3.8-5.5); Red Cell Distribution Width 12.8 % (9.3-17.3); White Blood Count 7.6 T/CUMM (4-12)
[2018-11-24 04:51] LABS: Albumin 3.1 G/DL (3.4-5.0); Bilirubin,Total 0.8 MG/DL (0.2-1.0); Calcium 9.1 MG/DL (8.5-10.1); Osmolality,Calculated 287.3 MOS/KG (273-304); Total Protein 6.4 G/DL (6.4-8.3)
[2018-11-24] MEDS: NITROGLYCERIN 2% OINT 1 INCH/GM PACK TOP SCH ×3 (09:29→18:30)
[2018-11-24] MEDS: ENOXAPARIN 80 MG/0.8 ML SYRINGE SUBCUT SCH (09:29)
[2018-11-24] MEDS ORDERED: diphenhydrAMINE CAP 25 MG CAPSULE PO ONE (09:40)
[2018-11-24] MEDS ORDERED: POTASSIUM CHLORIDE RIDER 10 MEQ in PREMIX 1 EACH IV PRN (09:40)
[2018-11-24] MEDS ORDERED: DIAZEPAM 5 MG TABLET PO ONE (09:40)
[2018-11-24] MEDS ORDERED: MAGNESIUM SULF RIDER 2 GM in PREMIX 1 EACH IV PRN (09:40)
[2018-11-24] MEDS: ASPIRIN EC 81 MG TABLET PO SCH (11:21)
[2018-11-24] MEDS: CLOPIDOGREL 75 MG TABLET PO SCH (11:21)
[2018-11-24] MEDS: METOPROLOL TARTRATE 100 MG TABLET PO SCH ×2 (11:21→21:15)
[2018-11-24] MEDS: INSULIN LISPRO 100 UNIT/ML SUBCUT SCH ×4 (11:28→20:04)
[2018-11-24] MEDS: SODIUM CHLORIDE 0.45% 1,000 ML IV SCH ×3 (11:29→20:15)
[2018-11-24] MEDS ORDERED: fentaNYL 100 MCG/2 ML VIAL ONE (11:37)
[2018-11-24] MEDS ORDERED: LIDOCAINE 1% 20 ML VIAL ONE (11:37)
[2018-11-24] MEDS ORDERED: MIDAZOLAM 2 MG/2 ML VIAL ONE (11:37)
[2018-11-24] MEDS ORDERED: TIROFIBAN 5,000 MCG/100 ML PREMIX IV ONE (11:59)
[2018-11-24] MEDS ORDERED: TIROFIBAN 5,000 MCG/100 ML PREMIX IV SCH (12:00)
[2018-11-24] MEDS ORDERED: hydrALAZINE 20 MG/1 ML VIAL ONE (12:05)
[2018-11-24] MEDS ORDERED: CLOPIDOGREL 300 MG TABLET ONE (12:23)
[2018-11-24] MEDS ORDERED: TIROFIBAN IV ONE (12:30)
[2018-11-24] MEDS ORDERED: GLUCAGON 1 MG VIAL IM PRN (12:33)
[2018-11-24] MEDS ORDERED: DEXTROSE 50% 25 GM/50 ML SYRINGE IV PRN (12:33)
[2018-11-24] MEDS: SIMVASTATIN 40 MG TABLET PO SCH (21:15)
[2018-11-25] MEDS: NITROGLYCERIN 2% OINT 1 INCH/GM PACK TOP SCH ×3 (00:19→12:33)
[2018-11-25] MEDS: SODIUM CHLORIDE 0.45% 1,000 ML IV SCH ×2 (04:03→11:47)
[2018-11-25 04:31] LABS: Basophils % 0.5 % (0.0-0.8); Eosinophils # 0.1 10*3/uL (0.0-0.87); Eosinophils % 1.5 % (0.00-10.9); Hematocrit 36.8 VOL% (35.7-47.0); Hemoglobin 12.5 GM/DL (12.0-16.0); Immature Granulocytes % 0.2 %; Immature Granulocytes Absolute 0.02 #; Lymphocytes # 2.6 10*3/uL (1.4-4.0); Lymphocytes % 29.4 % (21.3-54.2); Mean Corpuscular Volume 91.3 FL (87-102); Mean Platelet Volume 11.3 FL (9.6-12.0); Monocytes % 9.7 % (1.7-12.7); Neutrophils % 58.7 % (38.7-73.9); Platelet Count 201 T/CUMM (130-400); Red Blood Count 4.03 MC/CUMM (3.8-5.5); Red Cell Distribution Width 12.9 % (9.3-17.3); White Blood Count 8.7 T/CUMM (4-12)
[2018-11-25 05:03] LABS: Calcium 8.5 MG/DL (8.5-10.1); Osmolality,Calculated 286.4 MOS/KG (273-304)
[2018-11-25] MEDS ORDERED: ENOXAPARIN 40 MG/0.4 ML SYRINGE SUBCUT SCH (06:00)
[2018-11-25] MEDS: INSULIN LISPRO 100 UNIT/ML SUBCUT SCH ×2 (09:46→11:57)
[2018-11-25] MEDS: CLOPIDOGREL 75 MG TABLET PO SCH (09:46)
[2018-11-25] MEDS: ASPIRIN EC 81 MG TABLET PO SCH (09:46)
[2018-11-25] MEDS: METOPROLOL TARTRATE 100 MG TABLET PO SCH (09:46)
[2018-11-25 12:12] VITALS: BP 157/79
== END 2018-11-25 13:00 | disposition home or self-care (01) ==
LOC: N.TELES → SUATTDRO 18:42
PROVIDERS: ADMIT Internal Medicine; ATTEND Internal Medicine